=== PATIENT | female | born 1960 | race Caucasian/White ===

== ENCOUNTER 2021-12-10 11:22 | Outpatient (CLI) | payer OTHER ==
[2021-12-11 12:27] LABS: SARS-CoV-2 PCR by NAA Not Detected (NotDetected)
== END 2021-12-10 11:23 | disposition home or self-care (01) ==
LOC: CSHLAB 11:22
PROVIDERS: ATTEND Internal Medicine Gastroenterology
DX: Z20.822 Contact with and (suspected) exposure to COVID-19 (principal)
CPT/HCPCS: U0003; U0005

== ENCOUNTER 2021-12-13 08:49 | Day surgery (SDC) | payer OTHER ==
[2021-12-09 09:40] VITALS: BMI 28.8
[~2021-12-13 08:49] MED LIST: Ampicillin 2 GM in Sodium Chloride 0.9% 100 ML IVPB SCH
[2021-12-13] MEDS ORDERED: Lidocaine 1% MPF 2 ML VIAL ONE (09:25)
[2021-12-13] MEDS ORDERED: Lidocaine 2% MPF 10 ML AMP (For Epidural Use) ONE (09:36)
[2021-12-13] MEDS ORDERED: PROPOFOL 40 ML ONE (09:36)
== END 2021-12-13 11:38 | disposition home or self-care (01) ==
LOC: CSHSDC 08:49
PROVIDERS: ATTEND Internal Medicine Gastroenterology
PROC: 0DB68ZZ Excision of Stomach, Via Natural or Artificial Opening Endoscopic (ICD-10-PCS; principal; 2021-12-13)
DX: K25.9 Gastric ulcer, unspecified as acute or chronic, without hemorrhage or perforation (principal); K31.7 Polyp of stomach and duodenum; K21.9 Gastro-esophageal reflux disease without esophagitis
CPT/HCPCS: 36416; 88305; J0290; J2704; J3490

== ENCOUNTER 2022-12-12 14:23 | Outpatient (CLI) | payer OTHER | END 2022-12-12 14:24 | disposition home or self-care (01) | LOC: CSHMAMMO 14:23 | PROVIDERS: ATTEND Family Medicine | DX: Z12.31 Encounter for screening mammogram for malignant neoplasm of breast (principal) | CPT/HCPCS: 77067 ==